=== PATIENT | male | born 1990 | race African-American/Black ===

== ENCOUNTER 2017-03-22 13:00 | Outpatient (RCR) | payer OTHER ==
[2017-02-23 11:56] VITALS: BP 111/57; PULSE 74; TEMP 98
[2017-03-08 14:05] VITALS: BP 112/72; PULSE 68; TEMP 98.3
[~2017-03-22] VITALS: Ht 165.1 cm; Wt 90.9 kg
[~2017-03-22 13:00] MED LIST: FLONASE NASAL S16 GM NS; PROAIR HFA0.09 MG/AC IH; SINGULAIR 110 MG/TAB PO; ZANTAC 150150 MG PO; ZYRTEC 10MG10 MG PO
[2017-03-22 15:59] VITALS: BP 120/70; PULSE 74; TEMP 98
== END 2017-05-24 | disposition home or self-care (01) ==
LOC: EUO
DX: J45.40 Moderate persistent asthma, uncomplicated (principal); Z79.899 Other long term (current) drug therapy